=== PATIENT | male | born 1930 | race Caucasian/White ===

== ENCOUNTER → 2017-02-02 | Outpatient (CLI) | payer OTHER, BC ==
[~2017-02-02] MED LIST: ASPI325T39 PO
[2017-02-02 12:41] LABS: HEMATOCRIT 44.7 % (42-52); MEAN CELL VOLUME 93.9 fL (80-100); MEAN CORPUSCULAR HEMOGLOBIN 30.3 pg (25-34); MEAN CORPUSCULAR HGB CONC 32.2 g/dl (32-36); MEAN PLATELET VOLUME 11.4 fL (7.4-10.4); PLATELET COUNT 198 K/uL (130-400); RED BLOOD COUNT 4.76 M/uL (4.7-6.1); WHITE BLOOD COUNT 6.22 K/uL (4.8-10.8)
[2017-02-02 13:06] LABS: BLOOD UREA NITROGEN 20 mg/dl (7-18); BUN/CREATININE RATIO 20.8 (10-20); CALCIUM 8.6 mg/dl (8.5-10.1); CARBON DIOXIDE 30 mmol/L (21-32); CHLORIDE 102 mmol/L (98-107); CREATININE 0.98 mg/dl (0.60-1.40); GLUCOSE 91 mg/dl (70-99); POTASSIUM 4.6 mmol/L (3.5-5.1); SODIUM 136 mmol/L (136-145)
[2017-02-02 13:18] LABS: CHOLESTEROL 134 mg/dl (0-200); CHOLESTEROL/HDL RATIO 3.5; HDL CHOLESTEROL 38 mg/dl; LDL CHOLESTEROL CALCULATED 80 mg/dl; TRIGLYCERIDES 82 mg/dl (0-150); VERY LOW DENSITY LIPOPROT CALC 16 mg/dl
== END | disposition home or self-care (01) ==
LOC: C.LABPVFM 09:59
PROVIDERS: ATTEND Internal Medicine
DX: E03.9 Hypothyroidism, unspecified (principal); I35.9 Nonrheumatic aortic valve disorder, unspecified

== ENCOUNTER → 2017-06-14 | Outpatient (CLI) | payer OTHER, BC ==
[2017-06-14 13:07] LABS: BASO % 0.7 %; BASO ABS # 0.05 K/uL (0-0.2); EOS % 5.6 %; EOS ABS # 0.39 K/uL (0-0.5); HEMATOCRIT 42.2 % (42-52); HEMOGLOBIN 13.8 g/dL (14.0-18.0); IG# 0.01 K/uL (0.00-0.02); LYMPH ABS # 0.83 K/uL (1.2-3.4); MEAN CELL VOLUME 91.7 fL (80-100); MEAN CORPUSCULAR HGB CONC 32.7 g/dl (32-36); MEAN PLATELET VOLUME 11.3 fL (7.4-10.4); MONO % 17.9 %; MONO ABS # 1.24 K/uL (0.11-0.59); NEUT % 63.7 %; NEUT ABS # 4.41 K/uL (1.4-6.5); PLATELET COUNT 176 K/uL (130-400); RED CELL DISTRIBUTION WIDTH CV 15.3 % (11.5-14.5); RED CELL DISTRIBUTION WIDTH SD 51.8 fL (36.4-46.3); WHITE BLOOD COUNT 6.93 K/uL (4.8-10.8)
[2017-06-14 14:24] LABS: BLOOD UREA NITROGEN 23 mg/dl (7-18); CALCIUM 8.7 mg/dl (8.5-10.1); CARBON DIOXIDE 27 mmol/L (21-32); CREATININE 0.88 mg/dl (0.60-1.40); GLUCOSE 91 mg/dl (70-99); POTASSIUM 4.4 mmol/L (3.5-5.1); SODIUM 136 mmol/L (136-145)
[2017-06-14 14:37] LABS: CHOLESTEROL 125 mg/dl (0-200); LDL CHOLESTEROL CALCULATED 65 mg/dl
== END | disposition home or self-care (01) ==
LOC: C.LABPVFM 08:19
PROVIDERS: ATTEND Internal Medicine
DX: Z00.00 Encounter for general adult medical examination without abnormal findings (principal); I35.0 Nonrheumatic aortic (valve) stenosis; E03.9 Hypothyroidism, unspecified

== ENCOUNTER → 2017-06-26 | Outpatient (CLI) | payer OTHER, BC ==
--- NOTE | 2017-06-26 13:47 | DIAGNOSTIC IMAGING REPORT ---
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 Follow-up study to assess mass of the left parotid gland COMPARISON: Ultrasound study 12/29/2015, CT study 12/29/2014, ultrasound guided biopsy 01/30/2015 TECHNIQUE: Multiple real time sonographic images of the left parotid gland were obtained accessing rojas scale appearance and color doppler flow. FINDINGS: There is a heterogeneous ovoid circumscribed parallel orientation mass of the left parotid gland which measures 2.9 x 2.1 x 2.3 cm demonstrating areas of internal vascularity and increased through transmission. On prior study dated 12/29/2015 this lesion measured 2.5 x 1.5 x 2.2 cm. No parotid ductal dilation or shadowing calcifications. No drainable fluid collections. IMPRESSION: Slight increase in size of the complex left parotid gland lesion, now measuring 2.9 cm. This was previously biopsied on 01/30/2015. The above report was generated using voice recognition software. It may contain grammatical, syntax or spelling errors. Electronically signed by: Favian Esparza M.D. 06/26/2017 1:45 PM Dictated Date/Time: 06/26/2017 1:41 PM
== END | disposition home or self-care (01) ==
LOC: C.ULTR 13:20
PROVIDERS: ATTEND Internal Medicine
DX: D11.0 Benign neoplasm of parotid gland (principal)

== ENCOUNTER 2020-11-28 07:48 | Observation (INO) ==
[2020-11-28] MEDS ORDERED: SODIUM CHLORIDE 0.9% 500 ML IV STA (07:59)
[2020-11-28] MEDS ORDERED: ONDANSETRON INJ 2 MG/ML 2 ML VIAL IV STA (07:59)
[2020-11-28] MEDS ORDERED: MoRPHine SULFATE 4 MG/ML 1 ML CARP\\VIAL IV PRN (07:59)
[2020-11-28 08:16] LABS: Basophils # (auto) 0.02 K/uL (0-0.2); Basophils % (auto) 0.1 %; Eosinophils # (auto) 0.23 K/uL (0-0.5); Eosinophils % (auto) 1.1 %; Hematocrit (blood only) 43.5 % (42-52); Hemoglobin 14.2 g/dL (14.0-18.0); Immature Granulocytes # (auto) 0.07 K/uL (0.00-0.02); Immature Granulocytes % (auto) 0.3 %; Lymphocytes # (auto) 1.17 K/uL (1.2-3.4); Lymphocytes % (auto) 5.6 %; Mean Corpuscular Hemoglobin 30.7 pg (25-34); Mean Corpuscular Hgb Conc 32.6 g/dL (32-36); Mean Corpuscular Volume 94.2 fL (80-100); Mean Platelet Volume 10.3 fL (7.4-10.4); Monocytes # (auto) 0.94 K/uL (0.11-0.59); Monocytes % (auto) 4.5 %; Neutrophils % (auto) 88.4 %; Platelet Count 209 K/uL (130-400); RDW Coefficient of Variation 13.6 % (11.5-14.5); RDW Standard Deviation 46.8 fL (36.4-46.3); Red Blood Count 4.62 M/uL (4.7-6.1); White Blood Count 20.73 K/uL (4.8-10.8)
--- NOTE | 2020-11-28 08:26 | XRay Report ---
XR chest 1V portable CLINICAL HISTORY: Abdominal pain. COMPARISON STUDY: Chest radiograph June 19, 2019. FINDINGS: Enlargement of the cardiac silhouette is noted. This appears increased since prior examinat ion. There is a probable hiatal hernia. Bibasilar opacities are present. There is no evidence for pul monary edema. There is minimal left midlung interstitial thickening. There is no pneumothorax. IMPRESSION: 1. Enlargement of the cardiac silhouette, increased since prior exam. 2. Bibasilar opacities, greater on the left. The findings may reflect atelectasis or pneumonia. Radio graphic follow-up is recommended. ACT 112: Negative or not required by law. Electronically signed by: Remigio Duong M.D. 11/28/2020 8:25 AM
[2020-11-28 08:31] LABS: Partial Thromboplastin Ratio 1.1; Partial Thromboplastin Time 28.2 Seconds (21.0-31.0)
[2020-11-28 08:34] LABS: Alanine Aminotransferase 23 U/L (12-78); Albumin Level 3.2 gm/dl (3.4-5.0); Aspartate Aminotransferase 18 U/L (15-37); BUN Creatinine Ratio 21.7 (10-20); Blood Urea Nitrogen 22 mg/dl (7-18); Calcium 8.2 mg/dl (8.5-10.1); Carbon Dioxide 24 mmol/L (21-32); Chloride 105 mmol/L (98-107); Creatinine Clr Calc Pharmacy 43.3 ml/min; Est GFR (African American) 76.6 ml/min; Est GFR (Non-African American) 66.1 ml/min; Glucose 107 mg/dl (70-99); Lipase 231 U/L (73-393); Potassium 4.2 mmol/L (3.5-5.1); Sodium 135 mmol/L (136-145)
--- NOTE | 2020-11-28 08:35 | Emergency Department Note ---
Impression & Plan Abdominal pain, Elevated WBC count, Partial obstruction of colon ED Provider Note NAME: ESTHER MAGALLON AGE: 89 SEX: M : 1930 ARRIVES VIA: Walk-In INFORMANT: Patient, ED PROVIDER(S): Erasto Varghese DO CHIEF COMPLAINT: Abdominal pain HPI: The patient is an 89-year-old male who presented to the emergency department for an evaluation of abdominal pain. The patient describes left lower quadrant abdominal pain which began overnight. He states he now has upper abdominal pain and epigastric discomfort. He states this is been ongoing since this morning. He denies having any nausea or vomiting. He denies having any chest pain or difficulty breathing. He states the pain is moderate. He states it is worsened when he ambulates or palpates over his left lower quadrant. He denies having a history of diverticulitis. He is not been seen by his primary care physician. He has been taking all of his medications without relief. The patient's daughter did talk to her sibling who states that the patient had a tick removed from his lower extremity earlier this week. ROS: See above HPI for pertinent positives & negatives. A total of 10 systems reviewed and were otherwise negative. PAST MEDICAL HISTORY: See Below PAST SURGICAL HISTORY: See Below FAMILY HISTORY: See Below SOCIAL HISTORY: See Below HOME MEDICATIONS: See Below ALLERGIES: See Below VITALS: See Below PHYSICAL EXAMINATION: GENERAL: Patient is awake alert in no acute distress patient is resting comfortably and showing no signs of anxiety EYES: The conjunctivae are clear. The pupils are round and reactive. EARS, NOSE, MOUTH AND THROAT: The nose is without any evidence of any deformity. NECK: The neck is nontender and supple. RESPIRATORY: Normal respiratory effort is noted there is no evidence of wheezing rhonchi or rales CARDIOVASCULAR: Regular rate and rhythm noted there no murmurs rubs or gallops normal S1 normal S2. GASTROINTESTINAL: The abdomen is soft and mildly distended. There is left lower quadrant tenderness to palpation. No specific guarding was noted. MUSCULOSKELETAL/EXTREMITIES: There is no evidence of gross deformity full range of motion is noted in the hips and shoulders. SKIN: There is no obvious evidence of any rash. Trace pedal edema was noted bilaterally. NEUROLOGIC: Patient is awake alert and oriented x3. MEDICAL DECISION MAKING: The patient is an 84-year-old male who presented to the emergency department for abdominal pain. The patient was found to have a very elevated white blood cell count in the emergency department. He had no vomiting but did have reproducible left-sided abdominal pain. I discussed the patient's laboratory and radiographic studies with him. He was treated with IV fluids and IV pain medication in the emergency department. He was reevaluated multiple times. I was very concerned given the patient's elevated white blood cell count but his CT findings were very nonspecific. I am unsure if his findings are just early given the read of a partial small bowel obstruction being a possibility. For this reason I discussed his case with the on-call general surgeon as well as the on-call [facility] hospitalist. They have agreed to evaluate the patient in the emergency department for further management and disposition. The patient was significantly improved on reevaluation. Triage Nursing notes reviewed. Prior medical records reviewed Vital Signs: reviewed and remarkable for no significant abnormalities Differential diagnosis: Etiologies such as appendicitis, diverticulitis, obstruction, inflammatory bowel disease, renal colic, PUD, biliary pathology, pancreatitis, mesenteric ischemia, aortic pathology, infections, genitourinary, UTI, perforated viscus, as well as others were entertained. ER treatment provided: See below Diagnostics interpreted by me: ECG: EKG was obtained in the emergency department. My interpretation is sinus rhythm at 60 bpm. There is no ectopy. There is no acute ST segment abnormalities noted. LVH was noted by voltage criteria. This was compared to a tracing from June 18, 2018. No significant changes were noted. Cardiac Monitoring: An order was placed for continuous cardiac monitoring. The monitor shows a rate of 57 bpm with sinus rhythm. Laboratory studies: As stated above and show below. Imaging studies: See below Consultation(s): 0945: I discussed this case with Dr. Avelar who is on-call for general surgery. 1020: I discussed this case with Dr. Martins who is on-call for the [facility]. Past Med/Surg History Medical History (Updated 11/28/20 @ 13:43 by Erasto Varghese DO) Aortic stenosis Hiatal hernia History of prostate cancer Leukocytosis Morgagni hernia Osteoarthritis Surgical History S/P inguinal hernia repair S/P prostatectomy Family History Father Myocardial infarction Mother Diabetes Sister Breast cancer Ovarian cancer Other Prostate cancer Denies family history of Colorectal cancer Social History Smoking Status: Never smoker Second Hand Exposure: No; Do You Dip or Chew Tobacco: No; Tobacco Cessation Education Requested by Patient: No Hx Alcohol Use: No Hx Substance Use: No Preferred Language: Brazilian Communication Ability: Effective Visual Impairment: Limited Hearing Ability: Normal 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 Beliefs That Will Affect Care: Spiritism marital status: / Current Living Situation: Family Current Living Situation Comment: lives with daughter, and granchildren current occupational status: retired How many Children do You have: 3 How many Children do You have Comment: 3 girls Feels Safe at Home: No Childhood Exposure to Second-Hand Smoke: No during the past year weight has: remained stable Dental Care, Regularly: No Physical Activity Frequency: Daily Seatbelt Use: always Sunscreen Use: No Assistive Devices: Glasses Allergies Allergies Allergy/AdvReac Type Severity Reaction Status Date / Time lactose Allergy Mild Gastrointestinal Verified 11/28/20 08:41 Upset Sulfa (Sulfonamide Allergy Mild RASH Verified 11/28/20 08:41 Antibiotics) milk Allergy Unknown UNK Verified 11/28/20 08:41 aspirin AdvReac Mild STOMACH Verified 11/28/20 08:41 IRRITATION clarithromycin [From Biaxin] AdvReac Verified 11/28/20 08:41 Home Meds Home Medications Medication Instructions Recorded Confirmed acetaminophen 325 mg tablet 325 mg PO HS 06/18/18 11/28/20 (Tylenol) diphenhydramine HCl 25 mg capsule 25 mg PO Q8H PRN 11/16/18 11/28/20 (Benadryl) zinc oxide 13 % topical cream 1 appln TOP DAILY PRN gm 11/16/18 11/28/20 (Desitin Rapid Relief) Results & Data (ED) Vital Signs Vital Signs - 24 hr 11/28/20 07:53 11/28/20 08:10 11/28/20 08:35 Temperature 36.9 C Temperature Source Temporal Artery Scan Pulse Rate 68 60 Pulse Rhythm Regular Pulse Strength Normal Respiratory Rate 20 18 Respiratory Effort / Characteristics Non-Labored Spontaneous Respiratory Depth Normal Blood Pressure 131/66 122/68 Blood Pressure Mean 87 86 Blood Pressure Position Sitting Pulse Oximetry 92 91 Oxygen Delivery Method Room Air Room Air Room Air Sepsis Recent Fever Within 48 Hours No Sepsis New/Unexplained Change in Mental Status N/A Sepsis Action Taken by Nursing No Action Required 11/28/20 09:06 11/28/20 09:30 11/28/20 10:30 Temperature Temperature Source Pulse Rate 65 59 L 58 L Pulse Rhythm Pulse Strength Respiratory Rate 19 20 20 Respiratory Effort / Characteristics Respiratory Depth Blood Pressure 132/61 130/53 L Blood Pressure Mean 84 78 Blood Pressure Position Pulse Oximetry 94 91 Oxygen Delivery Method Room Air Sepsis Recent Fever Within 48 Hours Sepsis New/Unexplained Change in Mental Status Sepsis Action Taken by [facility] Medications Current Medication List: was personally reviewed by me Laboratory Data Attestation: I reviewed the patient's lab results. Result diagrams: 11/28/20 08:08 11/28/20 08:08 Lab Results 11/28/20 11/28/20 11/28/20 Range/Units 08:08 08:08 08:08 WBC 20.73 H (4.8-10.8) K/uL RBC 4.62 L (4.7-6.1) M/uL Hgb 14.2 (14.0-18.0) g/dL Hct 43.5 (42-52) % MCV 94.2 (80-100) fL MCH 30.7 (25-34) pg MCHC 32.6 (32-36) g/dL RDW Std Deviation 46.8 H (36.4-46.3) fL RDW Coeff of Mandie 13.6 (11.5-14.5) % Plt Count 209 (130-400) K/uL MPV 10.3 (7.4-10.4) fL Immature Gran % (Auto) 0.3 % Neut % (Auto) 88.4 % Lymph % (Auto) 5.6 % Lanier % (Auto) 4.5 % Eos % (Auto) 1.1 % Baso % (Auto) 0.1 % Neut # (Auto) 18.30 H (1.4-6.5) K/uL Lymph # (Auto) 1.17 L (1.2-3.4) K/uL Lanier # (Auto) 0.94 H (0.11-0.59) K/uL Eos # (Auto) 0.23 (0-0.5) K/uL Baso # (Auto) 0.02 (0-0.2) K/uL Immature Gran # (Auto) 0.07 H (0.00-0.02) K/uL PT 10.0 (9.0-12.0) Seconds INR 1.0 (0.9-1.1) APTT 28.2 (21.0-31.0) Seconds PTT Ratio 1.1 Sodium 135 L (136-145) mmol/L Potassium 4.2 (3.5-5.1) mmol/L Chloride 105 (98-107) mmol/L Carbon Dioxide 24 (21-32) mmol/L Anion Gap 6.0 (3-11) BUN 22 H (7-18) mg/dl Creatinine 1.01 (0.6-1.4) mg/dl Est Cr Clr Drug Dosing 43.3 ml/min Est GFR ( Amer) 76.6 ml/min Est GFR (Non-Af Amer) 66.1 ml/min BUN/Creatinine Ratio 21.7 H (10-20) Glucose 107 H (70-99) mg/dl Calcium 8.2 L (8.5-10.1) mg/dl Total Bilirubin 0.5 (0.2-1) mg/dl AST 18 (15-37) U/L ALT 23 (12-78) U/L Alkaline Phosphatase 74 (45-117) U/L Troponin I < 0.015 (0-0.045) ng/ml Total Protein 6.9 (6.4-8.2) gm/dl Albumin 3.2 L (3.4-5.0) gm/dl Globulin 3.7 (2.5-4.0) gm/dl Albumin/Globulin Ratio 0.9 (0.9-2) Lipase 231 (73-393) U/L Urine Color Urine Appearance (Clear) Urine pH (4.5-7.5) Ur Specific [place] (1.000-1.030) Urine Protein (Negative) Urine Glucose (UA) (Negative) Urine Ketones (Negative) Urine Blood (Negative) Urine Nitrite (Negative) Urine Bilirubin (Negative) Urine Urobilinogen (Negative) Ur Leukocyte Esterase (Negative) Anaplasma Smear Babesia Smear Lyme Disease IgG Ab (Negative) Lyme Disease IgM Ab (Negative) COVID-19 Eval Order SARS-CoV-2 (PCR) (Negative) 11/28/20 11/28/20 11/28/20 Range/Units 09:12 09:39 09:39 WBC (4.8-10.8) K/uL RBC (4.7-6.1) M/uL Hgb (14.0-18.0) g/dL Hct (42-52) % MCV (80-100) fL MCH (25-34) pg MCHC (32-36) g/dL RDW Std Deviation (36.4-46.3) fL RDW Coeff of Mandie (11.5-14.5) % Plt Count (130-400) K/uL MPV (7.4-10.4) fL Immature Gran % (Auto) % Neut % (Auto) % Lymph % (Auto) % Lanier % (Auto) % Eos % (Auto) % Baso % (Auto) % Neut # (Auto) (1.4-6.5) K/uL Lymph # (Auto) (1.2-3.4) K/uL Lanier # (Auto) (0.11-0.59) K/uL Eos # (Auto) (0-0.5) K/uL Baso # (Auto) (0-0.2) K/uL Immature Gran # (Auto) (0.00-0.02) K/uL PT (9.0-12.0) Seconds INR (0.9-1.1) APTT (21.0-31.0) Seconds PTT Ratio Sodium (136-145) mmol/L Potassium (3.5-5.1) mmol/L Chloride (98-107) mmol/L Carbon Dioxide (21-32) mmol/L Anion Gap (3-11) BUN (7-18) mg/dl Creatinine (0.6-1.4) mg/dl Est Cr Clr Drug Dosing ml/min Est GFR ( Amer) ml/min Est GFR (Non-Af Amer) ml/min BUN/Creatinine Ratio (10-20) Glucose (70-99) mg/dl Calcium (8.5-10.1) mg/dl Total Bilirubin (0.2-1) mg/dl AST (15-37) U/L ALT (12-78) U/L Alkaline Phosphatase (45-117) U/L Troponin I (0-0.045) ng/ml Total Protein (6.4-8.2) gm/dl Albumin (3.4-5.0) gm/dl Globulin (2.5-4.0) gm/dl Albumin/Globulin Ratio (0.9-2) Lipase (73-393) U/L Urine Color Yellow Urine Appearance Clear (Clear) Urine pH 5.5 (4.5-7.5) Ur Specific [place] 1.017 (1.000-1.030) Urine Protein Negative (Negative) Urine Glucose (UA) Negative (Negative) Urine Ketones Negative (Negative) Urine Blood Negative (Negative) Urine Nitrite Negative (Negative) Urine Bilirubin Negative (Negative) Urine Urobilinogen Negative (Negative) Ur Leukocyte Esterase Negative (Negative) Anaplasma Smear Babesia Smear Lyme Disease IgG Ab (Negative) Lyme Disease IgM Ab (Negative) COVID-19 Eval Order Covid19 at [facility] SARS-CoV-2 (PCR) NEGATIVE (Negative) 11/28/20 11/28/20 Range/Units 10:15 10:15 WBC (4.8-10.8) K/uL RBC (4.7-6.1) M/uL Hgb (14.0-18.0) g/dL Hct (42-52) % MCV (80-100) fL MCH (25-34) pg MCHC (32-36) g/dL RDW Std Deviation (36.4-46.3) fL RDW Coeff of Mandie (11.5-14.5) % Plt Count (130-400) K/uL MPV (7.4-10.4) fL Immature Gran % (Auto) % Neut % (Auto) % Lymph % (Auto) % Lanier % (Auto) % Eos % (Auto) % Baso % (Auto) % Neut # (Auto) (1.4-6.5) K/uL Lymph # (Auto) (1.2-3.4) K/uL Lanier # (Auto) (0.11-0.59) K/uL Eos # (Auto) (0-0.5) K/uL Baso # (Auto) (0-0.2) K/uL Immature Gran # (Auto) (0.00-0.02) K/uL PT (9.0-12.0) Seconds INR (0.9-1.1) APTT (21.0-31.0) Seconds PTT Ratio Sodium (136-145) mmol/L Potassium (3.5-5.1) mmol/L Chloride (98-107) mmol/L Carbon Dioxide (21-32) mmol/L Anion Gap (3-11) BUN (7-18) mg/dl Creatinine (0.6-1.4) mg/dl Est Cr Clr Drug Dosing ml/min Est GFR ( Amer) ml/min Est GFR (Non-Af Amer) ml/min BUN/Creatinine Ratio (10-20) Glucose (70-99) mg/dl Calcium (8.5-10.1) mg/dl Total Bilirubin (0.2-1) mg/dl AST (15-37) U/L ALT (12-78) U/L Alkaline Phosphatase (45-117) U/L Troponin I (0-0.045) ng/ml Total Protein (6.4-8.2) gm/dl Albumin (3.4-5.0) gm/dl Globulin (2.5-4.0) gm/dl Albumin/Globulin Ratio (0.9-2) Lipase (73-393) U/L Urine Color Urine Appearance (Clear) Urine pH (4.5-7.5) Ur Specific [place] (1.000-1.030) Urine Protein (Negative) Urine Glucose (UA) (Negative) Urine Ketones (Negative) Urine Blood (Negative) Urine Nitrite (Negative) Urine Bilirubin (Negative) Urine Urobilinogen (Negative) Ur Leukocyte Esterase (Negative) Anaplasma Smear See Comment Babesia Smear See Comment Lyme Disease IgG Ab Negative (Negative) Lyme Disease IgM Ab Negative (Negative) COVID-19 Eval Order SARS-CoV-2 (PCR) (Negative) Administered Medications Acetaminophen (Acetaminophen 325 Mg Tab) 325 mg PO HS BELINDA Stop: 12/28/20 20:59 Last Admin: 11/28/20 21:11 Dose: 325 mg Documented by: [id number] Parenteral Electrolytes (Normosol-R) 1,000 mls @ 80 mls/hr IV .[id number] BELINDA Stop: 11/29/20 19:59 Last Admin: 11/28/20 19:37 Dose: 80 mls/hr Documented by: [id number] Discontinued Medications Sodium Chloride (Nss) 500 mls @ 999 mls/hr IV .Q31M STA Stop: 11/28/20 08:29 Last Infusion: 11/28/20 09:25 Dose: 0 mls/hr Documented by: [id number] Admin: 11/28/20 08:39 Dose: 999 mls/hr Documented by: [id number] Piperacillin Sod/Tazobactam Sod (Zosyn) 4.5 gm in 120 mls @ 240 mls/hr IV NOW ONE Stop: 11/28/20 10:08 Last Infusion: 11/28/20 10:14 Dose: 0 mls/hr Documented by: [id number] Admin: 11/28/20 09:44 Dose: 240 mls/hr Documented by: [id number] Ioversol (Optiray 320 100ml) 94 ml IV ONCE ONE Stop: 11/28/20 09:09 Last Admin: 11/28/20 09:08 Dose: 94 ml Documented by: [id number] Ondansetron HCl (Ondansetron Inj 2 Mg/Ml 2 Ml Vial) 4 mg IV NOW STA Stop: 11/28/20 08:00 Last Admin: 11/28/20 21:16 Dose: Not Given Documented by: [id number] Imaging Data Radiologist's Impression: Abdomen/Pelvis CT 11/28/20 07:59 CT OF THE ABDOMEN AND PELVIS WITH CONTRAST CLINICAL HISTORY: Left lower quadrant abdominal pain. COMPARISON STUDY: Abdominal series November 25, 2014. TECHNIQUE: Following IV administration of 94 mL of Optiray, axial images of the abdomen and pelvis were obtained from the lung bases to the proximal femurs. Images were reviewed in the axial, sagittal, and coronal planes. IV contrast was administered without complication. Automated exposure control was utilized for the study. A dose lowering technique was utilized adhering to the principles of ALARA. CT DOSE: 406.10 mGy.cm FINDINGS: Moderate-sized hiatal hernia is present. Emphysema within the lung bases is noted. No pneumatosis, free air or portal venous gas is present. The liver, spleen, adrenal glands, kidneys and pancreas are unremarkable. There is no biliary or pancreatic ductal dilatation. No peripancreatic or pericholecystic infiltration. Subcentimeter left renal lesions are too small to characterize. There is no hydronephrosis. Colonic diverticulosis is noted without evidence for acute diverticulitis. There is a moderate amount stool within the colon. A Morgagni hernia contains a portion of the transverse colon. There is minimal fluid within the hernia sac. The more distal colon is relatively decompressed. However, the more proximal colon is not fluid-filled. Small bowel is mildly fluid-filled. There is no evidence for a small bowel obstruction. Prostate is surgically absent. There is no adenopathy within the pelvis. Prominent mesenteric lymph nodes are probably benign. No suspicious lesions are identified within the visualized skeletal structures. Major vasculature is patent. IMPRESSION: 1. Morgagni hernia which contains a portion of the transverse colon and a small amount of fluid. No definite resultant obstruction. At most, the findings represent a low-grade partial colonic obstruction. Given the clinical history, this finding is of questionable significance. 2. Colonic diverticulosis without evidence for acute diverticulitis. 3. Moderate sized hiatal hernia. 4. Mildly fluid-filled small bowel. No evidence for a small bowel obstruction. ACT 112: Negative or not required by law. Electronically signed by: Remigio Duong M.D. 11/28/2020 9:28 AM Chest X-Ray 11/28/20 07:59 XR chest 1V portable CLINICAL HISTORY: Abdominal pain. COMPARISON STUDY: Chest radiograph June 19, 2019. FINDINGS: Enlargement of the cardiac silhouette is noted. This appears increased since prior examination. There is a probable hiatal hernia. Bibasilar opacities are present. There is no evidence for pulmonary edema. There is minimal left midlung interstitial thickening. There is no pneumothorax. IMPRESSION: 1. Enlargement of the cardiac silhouette, increased since prior exam. 2. Bibasilar opacities, greater on the left. The findings may reflect atelectasis or pneumonia. Radiographic follow-up is recommended. ACT 112: Negative or not required by law. Electronically signed by: Remigio Duong M.D. 11/28/2020 8:25 AM Discharge Plan Visit Data Chief Complaint: Abdominal Pain Stated Complaint: L SIDE ABD PAIN NOW ALL OVER ED Provider: Erasto Varghese Discharge Problem: Abdominal pain, Elevated WBC count, Partial obstruction of colon Patient Disposition: Admitted As Inpatient Discharge Instructions Interventions: ED Discharge Assessment Last Done: 11/28/20 12:30 Discharge Problem: Abdominal pain Qualifiers: Abdominal location: left lower quadrant Qualified Code(s): R10.32 - Left lower quadrant pain Elevated WBC count Qualifiers: Leukocytosis type: unspecified Qualified Code(s): D72.829 - Elevated white blood cell count, unspecified
[2020-11-28 08:38] LABS: Albumin Globulin Ratio 0.9 (0.9-2); Alkaline Phosphatase 74 U/L (45-117); Bilirubin,Total 0.5 mg/dl (0.2-1); Globulin 3.7 gm/dl (2.5-4.0); Total Protein 6.9 gm/dl (6.4-8.2); Troponin I < 0.015 ng/ml (0-0.045)
[2020-11-28] MEDS ORDERED: OPTIRAY 320 100ml IV ONE (09:08)
--- NOTE | 2020-11-28 09:29 | CT Scan Report ---
CT OF THE ABDOMEN AND PELVIS WITH CONTRAST CLINICAL HISTORY: Left lower quadrant abdominal pain. COMPARISON STUDY: Abdominal series November 25, 2014. TECHNIQUE: Following IV administration of 94 mL of Optiray, axial images of the abdomen and pelvis we re obtained from the lung bases to the proximal femurs. Images were reviewed in the axial, sagittal, and coronal planes. IV contrast was administered without complication. Automated exposure control wa s utilized for the study. A dose lowering technique was utilized adhering to the principles of ALARA . CT DOSE: 406.10 mGy.cm FINDINGS: Moderate-sized hiatal hernia is present. Emphysema within the lung bases is noted. No pneum atosis, free air or portal venous gas is present. The liver, spleen, adrenal glands, kidneys and panc reas are unremarkable. There is no biliary or pancreatic ductal dilatation. No peripancreatic or samuel cholecystic infiltration. Subcentimeter left renal lesions are too small to characterize. There is no hydronephrosis. Colonic diverticulosis is noted without evidence for acute diverticulitis. There is a moderate amount stool within the colon. A Morgagni hernia contains a portion of the transverse colo n. There is minimal fluid within the hernia sac. The more distal colon is relatively decompressed. Ho wever, the more proximal colon is not fluid-filled. Small bowel is mildly fluid-filled. There is no e vidence for a small bowel obstruction. Prostate is surgically absent. There is no adenopathy within t he pelvis. Prominent mesenteric lymph nodes are probably benign. No suspicious lesions are identified within the visualized skeletal structures. Major vasculature is patent. IMPRESSION: 1. Morgagni hernia which contains a portion of the transverse colon and a small amount of fluid. No d efinite resultant obstruction. At most, the findings represent a low-grade partial colonic obstructio n. Given the clinical history, this finding is of questionable significance. 2. Colonic diverticulosis without evidence for acute diverticulitis. 3. Moderate sized hiatal hernia. 4. Mildly fluid-filled small bowel. No evidence for a small bowel obstruction. ACT 112: Negative or not required by law. Electronically signed by: Remigio Duong M.D. 11/28/2020 9:28 AM
[2020-11-28 09:36] LABS: Appearance Urine Clear (Clear); Bilirubin Urine Negative (Negative); Blood Urine Negative (Negative); Color Urine Yellow; Glucose Urine UA Negative (Negative); Ketones Urine Negative (Negative); Leukocyte Esterase Urine Negative (Negative); Nitrite Urine Negative (Negative); Protein Urine Negative (Negative); Specific Gravity Urine 1.017 (1.000-1.030); Urobilinogen Urine Negative (Negative); pH Urine 5.5 (4.5-7.5)
[2020-11-28] MEDS ORDERED: PIPERACILL/TAZOBAC CONSULT ACTIVE PRN (09:39)
[2020-11-28] MEDS ORDERED: PIPERACILLIN/TAZOBACTAM 4.5 GM/120 ML BAG IV ONE (09:39)
--- NOTE | 2020-11-28 10:07 | Surgery Consultation ---
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 CT showed no evidence of obstruction or strangulation. This is likely a chronic finding and unrelated to his left lower quadrant abdominal pain as this is in the right upper quadrant. No acute surgical intervention indicated at this time. If surgical intervention were indicated, would recommend tertiary center repair as these are rare hernias and involve the diaphragm. No surgical intervention at this time Disposition per emergency department Consider outpatient consultation with thoracic surgeon or hernia specialist at tertiary center for further evaluation (2) Abdominal pain: (3) Leukocytosis: (4) Hiatal hernia: History of Present Illness Reason for Consultation: Abdominal pain History of Present Illness 89-year-old male presented to emergency department with chief complaint of left lower quadrant abdominal pain starting early this morning. The pain is since subsided. Last bowel movement yesterday. Passing gas. No associated fevers, nausea, vomiting. Thought maybe it was a kidney stone as he has had these on the right in the past. History of prostate surgery and abdominal hernia repairs. Allergies Allergy/AdvReac Type Severity Reaction Status Date / Time lactose Allergy Mild Gastrointestinal Verified 11/28/20 08:41 Upset Sulfa (Sulfonamide Allergy Mild RASH Verified 11/28/20 08:41 Antibiotics) milk Allergy Unknown UNK Verified 11/28/20 08:41 aspirin AdvReac Mild STOMACH Verified 11/28/20 08:41 IRRITATION clarithromycin [From Biaxin] AdvReac Verified 11/28/20 08:41 Home Medications Medication Instructions Recorded Confirmed Type acetaminophen 325 mg tablet 325 mg PO HS 06/18/18 11/28/20 History (Tylenol) diphenhydramine HCl 25 mg capsule 25 mg PO Q8H PRN 11/16/18 11/28/20 History (Benadryl) zinc oxide 13 % topical cream 1 appln TOP DAILY PRN gm 11/16/18 11/28/20 History (Desitin Rapid Relief) Patient History Medical History (Updated 11/28/20 @ 10:04 by Ronal Avelar DO, FACS) Aortic stenosis Hiatal hernia History of prostate cancer Leukocytosis Morgagni hernia Osteoarthritis Surgical History S/P inguinal hernia repair S/P prostatectomy Family History Father Myocardial infarction Mother Diabetes Sister Breast cancer Ovarian cancer Other Prostate cancer Denies family history of Colorectal cancer Social History Smoking Status: Never smoker Second Hand Exposure: Yes; Hx Alcohol Use: No Hx Substance Use: No Preferred Language: Tajik Communication Ability: Effective Visual Impairment: Limited Hearing Ability: Normal Beliefs That Will Affect Care: None marital status: / Current Living Situation: Family Current Living Situation Comment: Granddaughter lives with him current occupational status: retired How many Children do You have: 3 How many Children do You have Comment: 3 girls Feels Safe at Home: Yes Childhood Exposure to Second-Hand Smoke: No during the past year weight has: remained stable Dental Care, Regularly: No Physical Activity Frequency: Daily Seatbelt Use: always Sunscreen Use: No Review of Systems Review of Systems: All systems reviewed & are unremarkable except as noted in HPI & below Physical Exam Constitutional: WD/WN, vitals as above no acute distress Respiratory: normal respiratory effort, lungs clear to auscultation Cardiovascular: RRR, no murmur, no edema Gastrointestinal (Abdomen): normal bowel sounds, soft, nontender, no hepatosplenomegaly Inspection/Auscultation: + abdominal surgical scar (Midline) Results & Data ([facility]) Vital Signs (Past 12 Hours) Vital Signs Temp Pulse Resp BP Pulse Ox 11/28/20 09:30 59 L 20 132/61 94 11/28/20 09:06 65 19 11/28/20 08:35 60 18 122/68 91 11/28/20 07:53 36.9 C 68 20 131/66 92 Laboratory Results Laboratory Results - last 24 hr 11/28/20 11/28/20 11/28/20 08:08 08:08 08:08 WBC 20.73 H RBC 4.62 L Hgb 14.2 Hct 43.5 MCV 94.2 MCH 30.7 MCHC 32.6 RDW Std Deviation 46.8 H RDW Coeff of Mandie 13.6 Plt Count 209 MPV 10.3 Immature Gran % (Auto) 0.3 Neut % (Auto) 88.4 Lymph % (Auto) 5.6 Hardy % (Auto) 4.5 Eos % (Auto) 1.1 Baso % (Auto) 0.1 Neut # (Auto) 18.30 H Lymph # (Auto) 1.17 L Hardy # (Auto) 0.94 H Eos # (Auto) 0.23 Baso # (Auto) 0.02 Immature Gran # (Auto) 0.07 H PT 10.0 INR 1.0 APTT 28.2 PTT Ratio 1.1 Sodium 135 L Potassium 4.2 Chloride 105 Carbon Dioxide 24 Anion Gap 6.0 BUN 22 H Creatinine 1.01 Est Cr Clr Drug Dosing 43.3 Est GFR ( Amer) 76.6 Est GFR (Non-Af Amer) 66.1 BUN/Creatinine Ratio 21.7 H Glucose 107 H Calcium 8.2 L Total Bilirubin 0.5 AST 18 ALT 23 Alkaline Phosphatase 74 Troponin I < 0.015 Total Protein 6.9 Albumin 3.2 L Globulin 3.7 Albumin/Globulin Ratio 0.9 Lipase 231 Urine Color Urine Appearance Urine pH Ur Specific [place] Urine Protein Urine Glucose (UA) Urine Ketones Urine Blood Urine Nitrite Urine Bilirubin Urine Urobilinogen Ur Leukocyte Esterase COVID-19 Eval Order SARS-CoV-2 (PCR) 11/28/20 11/28/20 11/28/20 09:12 09:39 09:39 WBC RBC Hgb Hct MCV MCH MCHC RDW Std Deviation RDW Coeff of Mandie Plt Count MPV Immature Gran % (Auto) Neut % (Auto) Lymph % (Auto) Hardy % (Auto) Eos % (Auto) Baso % (Auto) Neut # (Auto) Lymph # (Auto) Hardy # (Auto) Eos # (Auto) Baso # (Auto) Immature Gran # (Auto) PT INR APTT PTT Ratio Sodium Potassium Chloride Carbon Dioxide Anion Gap BUN Creatinine Est Cr Clr Drug Dosing Est GFR ( Amer) Est GFR (Non-Af Amer) BUN/Creatinine Ratio Glucose Calcium Total Bilirubin AST ALT Alkaline Phosphatase Troponin I Total Protein Albumin Globulin Albumin/Globulin Ratio Lipase Urine Color Yellow Urine Appearance Clear Urine pH 5.5 Ur Specific [place] 1.017 Urine Protein Negative Urine Glucose (UA) Negative Urine Ketones Negative Urine Blood Negative Urine Nitrite Negative Urine Bilirubin Negative Urine Urobilinogen Negative Ur Leukocyte Esterase Negative COVID-19 Eval Order Covid19 at [facility] SARS-CoV-2 (PCR) Pending Diagnostic Findings CT OF THE ABDOMEN AND PELVIS WITH CONTRAST CLINICAL HISTORY: Left lower quadrant abdominal pain. COMPARISON STUDY: Abdominal series November 25, 2014. TECHNIQUE: Following IV administration of 94 mL of Optiray, axial images of the abdomen and pelvis were obtained from the lung bases to the proximal femurs. Images were reviewed in the axial, sagittal, and coronal planes. IV contrast was administered without complication. Automated exposure control was utilized for the study. A dose lowering technique was utilized adhering to the principles of ALARA. CT DOSE: 406.10 mGy.cm FINDINGS: Moderate-sized hiatal hernia is present. Emphysema within the lung bases is noted. No pneumatosis, free air or portal venous gas is present. The li nils, spleen, adrenal glands, kidneys and pancreas are unremarkable. There is no biliary or pancreatic ductal dilatation. No peripancreatic or pericholecystic infiltration. Subcentimeter left renal lesions are too small to characterize. There is no hydronephrosis. Colonic diverticulosis is noted without evidence for acute diverticulitis. There is a moderate amount stool within the colon. A Morgagni hernia contains a portion of the transverse colon. There is minimal fluid within the hernia sac. The more distal colon is relatively decompressed. However, the more proximal colon is not fluid-filled. Small bowel is mildly fluid-filled. There is no evidence for a small bowel obstruction. Prostate is surgically absent. There is no adenopathy within the pelvis. Prominent mesenteric lymph nodes are probably benign. No suspicious lesions are identified within the visualized skeletal structures. Major vasculature is patent. IMPRESSION: 1. Morgagni hernia which contains a portion of the transverse colon and a small amount of fluid. No definite resultant obstruction. At most, the findings represent a low-grade partial colonic obstruction. Given the clinical history, this finding is of questionable significance. 2. Colonic diverticulosis without evidence for acute diverticulitis. 3. Moderate sized hiatal hernia. 4. Mildly fluid-filled small bowel. No evidence for a small bowel obstruction. PG Care Time/CCT Total # of Minutes Spent Total Time Spent with Patient: Total time spent is greater than 50% in coordination of care (as documented) at patient's floor/unit and/or counseling patient: Coding Level of Care Code 92295 Office/Outpt Visit, New Diagnoses Abdominal pain R10.9 Leukocytosis D72.829 Morgagni hernia Q79.0 Hiatal hernia K44.9
--- NOTE | 2020-11-28 10:30 | History & Physical Report ---
Date of Service November 28, 2020 Assessment & Plan (1) Partial obstruction of colon: Plan: Suspect this had mostly resolved by the time of the CT. Given advanced age, leucocytosis and risk of recurring with increased frequency will observe overnight on clear liquid diet. Suspect more than just constipation given stress WBC response and severity of pain Clear liquids, lactose intolerant diet (2) Morgagni hernia: (3) Aortic stenosis: Plan: Severe; causing fatigue and reduced exercise tolerance. Has an appointment to see Dr Herrera regarding TAVR discussion. No history of current CHF. (4) Abnormal CXR: Plan: Radiographic follow up recommended for bibasilar opacities (5) Leukocytosis: Plan: Repeat CBC in Am. Suspect stress reaction to partial bowel obstruction Plan: VTE Prophylaxis - none, low risk and increased risk of falls Diet - as above Disposition - observation status to med/surg Admission and Anticipated Discharge Date Admission Date: November 27, 2020 History of Present Illness Chief Complaint: Abdominal pain Primary Care Provider: Erasto Dan MD Gray Botello is an 89 year old male who presents to the ER with abdominal pain. Pain startd in the left lower quadrant this morning which he relates to prior remote kdiney stone pain, severity 7/10, woke him up at 2am, "knot" like pain, improved with pressure on his abdomen. left lower quadrant abdominal pain, no radiation. This progressed to generalized abdominal pain across his entire abdomen which was more severe 10/10 pain, relieved on lying down and IV fluids/ondansetron given in the ER. He has not required any pain medication in the ER and his pain is now completely resolved (prior to CT taken). No associated nausea, vomiting, change in bowels, melena or bright red blood in stool today. He notes 1 week ago having diarrhea for which he took Imodium and this made him constipated. He usually has 1 BM/day in the mornings which is helped with Metamucil daily. His daughter notes he has complained of intermittent abdominal pain of short duration which are much less severe over the last 3-4 months. 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 He was reviewed by surgery and no surgical intervention recommend at this time. Allergies Allergy/AdvReac Type Severity Reaction Status Date / Time lactose Allergy Mild Gastrointestinal Verified 11/28/20 08:41 Upset Sulfa (Sulfonamide Allergy Mild RASH Verified 11/28/20 08:41 Antibiotics) milk Allergy Unknown UNK Verified 11/28/20 08:41 aspirin AdvReac Mild STOMACH Verified 11/28/20 08:41 IRRITATION clarithromycin [From Biaxin] AdvReac Verified 11/28/20 08:41 Home Medications Medication Instructions Recorded Confirmed Type acetaminophen 325 mg tablet 325 mg PO HS 06/18/18 11/28/20 History (Tylenol) diphenhydramine HCl 25 mg capsule 25 mg PO Q8H PRN 11/16/18 11/28/20 History (Benadryl) zinc oxide 13 % topical cream 1 appln TOP DAILY PRN gm 11/16/18 11/28/20 History (Desitin Rapid Relief) Past Med/Surg History Medical History (Updated 11/28/20 @ 11:20 by Lawrence Martins MD) Aortic stenosis Hiatal hernia History of prostate cancer Leukocytosis Morgagni hernia Osteoarthritis Surgical History S/P inguinal hernia repair S/P prostatectomy Family History Father Myocardial infarction Mother Diabetes Sister Breast cancer Ovarian cancer Other Prostate cancer Denies family history of Colorectal cancer Social History Smoking Status: Never smoker Second Hand Exposure: Yes; Hx Alcohol Use: No Hx Substance Use: No Preferred Language: Icelandic Communication Ability: Effective Visual Impairment: Limited Hearing Ability: Normal Beliefs That Will Affect Care: None marital status: / Current Living Situation: Family Current Living Situation Comment: Granddaughter lives with him current occupational status: retired How many Children do You have: 3 How many Children do You have Comment: 3 girls Feels Safe at Home: Yes Childhood Exposure to Second-Hand Smoke: No during the past year weight has: remained stable Dental Care, Regularly: No Physical Activity Frequency: Daily Seatbelt Use: always Sunscreen Use: No Review of Systems Review of Systems: All systems reviewed & are unremarkable except as noted in HPI & below Fatigue on exertion, decreasing exercise tolerance Tick bite removed on Monday. He took doxycycline prophylaxis for this. Tick was on for > 24 hours. Physical Exam Constitutional: WD/WN, vitals as above + frail appearing; no acute distress Eyes: + anicteric sclerae; normal pupil size ENMT: external ear and nose normal, oropharynx normal Neck: trachea midline, no thyromegaly Respiratory: normal respiratory effort, lungs clear to auscultation Cardiovascular: Rate/Rhythm: regular rate and regular rhythm Heart Sounds: + murmur (late opening JIMY 3/6 RUSB) Vessels: no JVD Extremities: normal capillary refill; no calf tenderness and no pedal edema Gastrointestinal (Abdomen): Inspection/Auscultation: normal bowel sounds Percussion/Palpation: abdomen soft; abdomen nontender, no guarding and abdomen not rigid Musculoskeletal: no cyanosis or clubbing, extremities motor strength 5/5 Skin: no rashes, warm and dry Neurologic: moves all extremities and awake; not confused Psychiatric: A+Ox3, euthymic affect Results & Data Results & Data ([facility]) Vital Signs (Past 12 Hours) Vital Signs Temp Pulse Resp BP Pulse Ox 11/28/20 09:30 59 L 20 132/61 94 11/28/20 09:06 65 19 11/28/20 08:35 60 18 122/68 91 11/28/20 07:53 36.9 C 68 20 131/66 92 Diagnostic Findings XR chest 1V portable CLINICAL HISTORY: Abdominal pain. COMPARISON STUDY: Chest radiograph June 19, 2019. FINDINGS: Enlargement of the cardiac silhouette is noted. This appears increased since prior examination. There is a probable hiatal hernia. Bibasilar opacities are present. There is no evidence for pulmonary edema. There is minimal left midlung interstitial thickening. There is no pneumothorax. IMPRESSION: 1. Enlargement of the cardiac silhouette, increased since prior exam. 2. Bibasilar opacities, greater on the left. The findings may reflect atelectasis or pneumonia. Radiographic follow-up is recommended. ECG Indication: abdominal pain Rate (beats per minute): 60 Rhythm: normal sinus Findings: + 1st degree AV block Comparison ECG Date: from (June 18, 2018) Change: no significant change Code Status & VTE Plan Code Status DNR/DNI as discussed with the patient with her daughter present VTE Prophylaxis Plan VTE Prophylaxis will be ordered: No Reason for no VTE drug order: Treatment not indicated Reason for no VTE mechanical prophylaxis: Treatment not indicated PG Care Time/CCT Total # of Minutes Spent Total Time Spent with Patient: Total time spent is greater than 50% in coordination of care (as documented) at patient's floor/unit and/or counseling patient: Coding Level of Care Code INT OBSERVATION CARE 70M LVL 3 Diagnoses Morgagni hernia Q79.0 Aortic stenosis I35.0 Abnormal CXR R93.89 Leukocytosis D72.829 Partial obstruction of colon K56.600
[2020-11-28 11:23] LABS: Lyme Ab IgG w/WB Rflx Negative (Negative); Lyme Ab IgM w/WB Rflx Negative (Negative)
[2020-11-28] MEDS ORDERED: INFLUENZA VACCINE HIGH DOSE PF 65+ 0.7 ML SYR IM ONE (18:00)
[2020-11-28] MEDS: NORMOSOL-R 1,000 ML IV SCH (19:37)
[2020-11-28] MEDS ORDERED: ACETAMINOPHEN 325 MG TAB PO SCH (21:00)
[2020-11-29 06:57] LABS: Basophils # (auto) 0.03 K/uL (0-0.2); Basophils % (auto) 0.5 %; Eosinophils % (auto) 3.3 %; Hematocrit (blood only) 40.3 % (42-52); Immature Granulocytes # (auto) 0.02 K/uL (0.00-0.02); Immature Granulocytes % (auto) 0.3 %; Lymphocytes % (auto) 8.3 %; Mean Corpuscular Hemoglobin 30.2 pg (25-34); Mean Corpuscular Hgb Conc 32.3 g/dL (32-36); Mean Corpuscular Volume 93.7 fL (80-100); Mean Platelet Volume 10.2 fL (7.4-10.4); Monocytes # (auto) 0.92 K/uL (0.11-0.59); Monocytes % (auto) 15.3 %; Neutrophils # (auto) 4.36 K/uL (1.4-6.5); Neutrophils % (auto) 72.3 %; Platelet Count 177 K/uL (130-400); RDW Coefficient of Variation 13.5 % (11.5-14.5); RDW Standard Deviation 46.3 fL (36.4-46.3); White Blood Count 6.03 K/uL (4.8-10.8)
[2020-11-29 07:19] LABS: Albumin Level 2.7 gm/dl (3.4-5.0); BUN Creatinine Ratio 16.2 (10-20); Creatinine Clr Calc Pharmacy 50.6 ml/min; Est GFR (African American) 86.9 ml/min; Potassium 4.5 mmol/L (3.5-5.1)
[2020-11-29 07:22] LABS: Albumin Globulin Ratio 0.8 (0.9-2); Bilirubin,Total 0.7 mg/dl (0.2-1); Globulin 3.2 gm/dl (2.5-4.0); Total Protein 5.9 gm/dl (6.4-8.2)
[2020-11-29] MEDS: NORMOSOL-R 1,000 ML IV SCH (08:09)
--- NOTE | 2020-11-29 09:39 | Electrocardiogram Report ---
Test Reason : Blood Pressure : / mmHG Vent. Rate : 060 BPM Atrial Rate : 060 BPM P-R Int : 212 ms QRS Dur : 092 ms QT Int : 400 ms P-R-T Axes : 057 006 023 degrees QTc Int : 400 ms Sinus rhythm with 1st degree A-V block Otherwise normal ECG When compared with ECG of 18-JUN-2018 05:56, No significant change was found Confirmed by Jordy Castillo ([id number]) on 11/29/2020 9:39:17 AM Referred By: REFERRED SELF Confirmed By:Jordy Castillo
--- NOTE | 2020-11-29 09:58 | XRay Report ---
KUB CLINICAL HISTORY: Partial SBO COMPARISON STUDY: CT of the abdomen and pelvis November 28, 2020. FINDINGS: Pelvic surgical clips are noted. Note is again made of a Morgagni hernia which contains a p ortion of the transverse colon, as shown on CT. There is mild distention of the colon without convinc ing evidence for a bowel obstruction. Moderate amount stool is noted. There is no evidence for a smal l bowel obstruction. IMPRESSION: 1. Mild gaseous distention of the colon without evidence for a bowel obstruction. 2. Redemonstration of a Morgagni hernia which contains a portion of the transverse colon, better depi cted on CT. ACT 112: Negative or not required by law. Electronically signed by: Remigio Duong M.D. 11/29/2020 9:56 AM
[2020-12-02 12:57] LABS: Babesia microti DNA Not Detected (Not Detected)
[2020-12-03 01:07] LABS: Ehrlichia chaff DNA Bld Negative (Negative)
[2020-12-03 02:16] LABS: Q Fever IgG, Phase I NEGATIVE; Q Fever Phase I IgM Antibody NEGATIVE; Q Fever Phase II IgG Antibody POSITIVE; Q Fever Phase II IgM Antibody NEGATIVE; R. typhi IgG Ab NOT DETECTED; R. typhi IgM Ab NOT DETECTED; RMSF IgG Ab NOT DETECTED; RMSF IgM Ab NOT DETECTED
--- NOTE | 2020-12-22 13:42 | Discharge Summary ---
Date of Service November 29, 2020 Admission HPI Per Admitting Provider Gray Botello is an 89 year old male who presents to the ER with abdominal pain. Pain startd in the left lower quadrant this morning which he relates to prior remote kdiney stone pain, severity 7/10, woke him up at 2am, "knot" like pain, improved with pressure on his abdomen. left lower quadrant abdominal pain, no radiation. This progressed to generalized abdominal pain across his entire abdomen which was more severe 10/10 pain, relieved on lying down and IV fluids/ondansetron given in the ER. He has not required any pain medication in the ER and his pain is now completely resolved (prior to CT taken). No associ ated nausea, vomiting, change in bowels, melena or bright red blood in stool today. He notes 1 week ago having diarrhea for which he took Imodium and this made him constipated. He usually has 1 BM/day in the mornings which is helped with Metamucil daily. His daughter notes he has complained of intermittent abdominal pain of short duration which are much less severe over the last 3-4 months. 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 He was reviewed by surgery and no surgical intervention recommend at this time. Admission Exam Per Admitting Provider Constitutional: WD/WN, vitals as above + frail appearing; no acute distress Eyes: + anicteric sclerae; normal pupil size ENMT: external ear and nose normal, oropharynx normal Neck: trachea midline, no thyromegaly Respiratory: normal respiratory effort, lungs clear to auscultation Cardiovascular: Rate/Rhythm: regular rate and regular rhythm Heart Sounds: + murmur (late opening JIMY 3/6 RUSB) Vessels: no JVD Extremities: normal capillary refill; no calf tenderness and no pedal edema Gastrointestinal (Abdomen): Inspection/Auscultation: normal bowel sounds Percussion/Palpation: abdomen soft; abdomen nontender, no guarding and abdomen not rigid Musculoskeletal: no cyanosis or clubbing, extremities motor strength 5/5 Skin: no rashes, warm and dry Neurologic: moves all extremities and awake; not confused Psychiatric: A+Ox3, euthymic affect Principal Diagnosis Partial small bowel obstruction Discharge Exam GENERAL : No acute distress. Patient freely moving about the room EYES: No icterus, gaze conjugate NOSE: No evidence of epistaxis MOUTH: No lesions or candidiasis NECK: Supple LUNGS: CTA B/L, no wheezes, rales or rhonchi HEART: Regular, rate controlled ABDOMEN: Soft, NT, ND, BS Present. No rebound tenderness. No pain to deep palpation EXTREMITIES: No LE edema, pedal pulses intact NEURO: A&OX3 Discharge Data Allergies Allergy/AdvReac Type Severity Reaction Status Date / Time lactose Allergy Mild Gastrointestinal Verified 12/21/20 11:50 Upset Sulfa (Sulfonamide Allergy Mild RASH Verified 12/21/20 11:50 Antibiotics) milk Allergy Unknown UNK Verified 12/21/20 11:50 aspirin AdvReac Mild STOMACH Verified 12/21/20 11:50 IRRITATION clarithromycin [From Biaxin] AdvReac Verified 12/21/20 11:50 Consultations 11/28/20 09:45 Consult General Surgery Stat 11/28/20 10:23 ED Decision to Admit Stat Ordered Studies 11/28/20 07:59 CT abd pelvis IV con only Stat CT SCAN OF THE ABDOMEN AND PELVIS WITH IV CONTRAST CLINICAL HISTORY: Generalized abdominal pain COMPARISON STUDY: Abdominal CT scans performed earlier the same day 12/04/2020 and 11/28/2020. TECHNIQUE: Following the IV administration of 94 cc of Optiray 320, CT scan of the abdomen and pelvis is performed from the lung bases to the proximal femora. Images are reviewed in the axial, sagittal, and coronal planes. IV contrast was administered without complication. Oral contrast was utilized. There is significant motion artifact, as well as streak artifact from the arms which could not be elevated above the abdomen. A dose lowering technique was utilized adhering to the principles of ALARA. CT DOSE: 830.06 mGycm FINDINGS: Lung bases: The heart is mildly enlarged and without pericardial effusion. The aortic valve leaflets are densely calcified. 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 Emphysematous change is suspected. There are trace pleural effusions, right larger than left with dependent airspace opacities. Scattered calcified granulomas are observed. There is a moderate to large hiatal hernia. Liver: The contrast enhanced liver is grossly normal in size, contour, and attenuation. There is no intrahepatic biliary ductal dilatation. The hepatic veins and portal veins appear patent. Gallbladder: Unremarkable. Spleen: Normal in size and attenuation. Pancreas: The unenhanced pancreas is moderately atrophic and grossly u nremarkable. Adrenal glands: Unremarkable. Kidneys: The contrast enhanced kidneys are atrophic and without hydronephrosis. The kidneys enhance symmetrically. Scattered subcentimeter cortical hypoden sities may represent cysts but are too small for definitive characterization. Abdominal vasculature: The abdominal aorta is normal in course and caliber noting moderate atherosclerotic calcification. Bowel: There is no bowel obstruction. Enteric contrast reaches the right colon There is rectosigmoid fecal retention and moderate constipation. There is mild colonic diverticulosis without CT evidence of acute diverticulitis. Again seen are fecalized loops of small bowel throughout the pelvis. There is no pneumatosis intestinalis, mesenteric venous gas, or portal venous gas. No focally thick walled bowel loops are identified. The appendix is well- visualized and normal. Peritoneum: There is no intraperitoneal free air or abdominal ascites. Lymphadenopathy: None. Pelvic viscera: The prostate gland is surgically absent. The bladder is normal as visualized. There are bilateral inguinal hernias which contain small segment of bowel. Postoperative change is noted in the groin bilaterally. Skeletal structures: No lytic or blastic lesions are seen. IMPRESSION: 1. Rectosigmoid fecal retention and moderate constipation. 2. Again seen are fecalized loops of small bowel within the pelvis. 3. There is no pneumatosis intestinalis, portal venous gas, or mesenteric venous gas. Findings suspicious for pneumatosis on today's unenhanced examination are no longer identified and may have been related to surrounding stool. Correlate clinically. 4. Trace pleural effusions, right larger than left with bibasilar opacities. This could represent atelectasis versus an infectious/inflammatory pneumonitis and clinical correlation will be required. 5. Cardiomegaly. 6. 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 7. Bilateral inguinal hernias contain small segment of bowel. 8. Additional findings as above. ACT 112: Negative or not required by law. Electronically signed by: Good Gotti M.D. 12/04/2020 11:59 AM Hospital Course (1) Partial obstruction of colon: (2) Morgagni hernia: (3) Aortic stenosis: (4) Leukocytosis: (1) Partial obstruction of colon: Plan: Suspect this had mostly resolved by the time of the CT. Given advanced age, leucocytosis and risk of recurring with increased frequency will observe overnight on clear liquid diet. Suspect more than just constipation given stress WBC response and severity of pain Clear liquids, lactose intolerant diet Patient had a formed bowel movement this morning No pain, n/v. Patient being discharged home today. 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 Has an appointment to see Dr Herrera regarding TAVR discussion. No history of current CHF. Continue outpatient management (4) Abnormal CXR: Plan: Radiographic follow up recommended for bibasilar opacities No evidence of infiltrate, consolidation, or pulmonary edema Oxygenating well on room air No need for follow up (5) Leukocytosis: Plan: Repeat CBC in Am. Suspect stress reaction to partial bowel obstruction Most likely leukemoid reaction WBC 6.03 this morning Disposition - Discharge home - no needs identified Total Time Total Time Spent Total Time Spent (In Minutes): 40 minutes over two visits Discharge Plan Discharge Items Patient Disposition: Home - Self-Care Reason For Visit: PARTIAL BOWEL OBSTRUCTION Discharge Diagnosis: Partial small bowel obstruction Activity: Resume your previous activity Lifting: Gradually increase as tolerated Bathing: No limitations Exercise/Sports: Gradually increase as tolerated Weightbearing: Full weightbearing Non-emergency contact: Primary Care Provider Call non-emergency contact if: you have any medication questions and you have a fever Follow-up/Referrals: Erasto Dan MD [Primary Care Provider] - 12/07/20 10:15 am Diet: Low Fiber and Low Fat Diet Texture: Dental soft (bite-sized) Addtl Attending Provider Instructions: Admitted with a partial small bowel obstruction. You repeat x-ray of your belly on the day of discharge and this showed some gas but no evidence of obstruction. You should eat a low-fat, low fiber diet and follow-up with your primary care physician within 2 weeks of discharge. He may recommend further follow-up with gastroenterology or general surgery for further evaluation and management. If you have any further abdominal pain that is uncontrolled or blood in your stool or blood in vomit, nausea, vomiting, increased diarrhea please contact your primary care physician or report to the emergency department for further evaluation. Pending Studies at Discharge: No Stand-Alone Forms: [facility] Medications and DC Order Prescriptions: Continued Desitin Rapid Relief 13 % cream 1 appln TOP DAILY PRN (Reason: skin irritation) RF: 0 acetaminophen [Tylenol] 325 mg Tablet 325 mg PO HS RF: 0 No Action doxycycline hyclate 100 mg capsule 100 mg PO BID 10 Days Qty: 20 RF: 0 Discharge Orders: Discharge Order (Routine); Ordered 11/29/20 Ordered By: Good Sesay/Other Patient Handouts: What Is a Hernia?, How a Hernia Develops Admission Data Admit Date/Time: 11/28/20 10:44 Attending Provider: Lawrence Martins Admit Provider: Lawrence Martins Primary Care Provider: Erasto Dan Other Providers: Ronal Avelar ; Lawrence Martins Other Interventions: Discharge Summary Assessment (RN) Last Done: 11/29/20 15:41 Supervising Physician Co-Signing Physician Notes Patient seen and examined, chart reviewed, case discussed with Good Hernandez PA-C and I agree with the assessment and plan as above General: A&Ox3. NAD. Cooperative. HEENT: Atraumatic, normocephalic. Pulm: CTAB A&P. -wheezes, -rales, -rhonchi. Symmetrical chest rise. No increase work of breathing. No respiratory distress. Cardiac: RRR. Radial pulses intact and symmetrical. Abdominal: Nontender, nondistended, soft. BS present. All labs and images reviewed Coding Level of Care Code D/C DAY MANAGEMENT >30 MINS Diagnoses Partial obstruction of colon K56.600 Morgagni hernia Q79.0 Aortic stenosis I35.0 Leukocytosis D72.829 Time Spent (min) 40
== END 2020-11-29 16:24 | disposition home or self-care (01) ==
LOC: ED 07:48 → 3N 07:48